=== PATIENT | female | born 1990 | race Caucasian/White ===

== ENCOUNTER 2022-06-29 05:56 | Inpatient (IN) ==
[2022-06-29] MEDS ORDERED: PENICILLIN G POTASSIUM 6 MU in DEXTROSE 5% 250 ML IV STA (06:37)
[2022-06-29] MEDS ORDERED: OXYTOCIN 30 UNITS/500 ML BAG IV PRN ×3 (06:37→18:17)
[2022-06-29] MEDS: LACTATED RINGER'S 1,000 ML IV PRN ×3 (06:50→13:43)
[2022-06-29 07:23] LABS: Hematocrit (blood only) 36.3 % (34.1-44.9); Hemoglobin 11.8 g/dl (12.0-16.0); Mean Corpuscular Hemoglobin 28.8 pg (25.0-34.0); Mean Corpuscular Hgb Conc 32.5 g/dL (32.0-36.0); Mean Corpuscular Volume 88.5 fL (80.0-100.0); Mean Platelet Volume 8.9 fL (9.4-12.3); Platelet Count 388 K/uL (130-400); RDW Coefficient of Variation 14.9 % (11.5-14.5); RDW Standard Deviation 48.8 fL (36.4-46.3); White Blood Count 12.31 K/ul (4.8-10.8)
[2022-06-29] MEDS ORDERED: ePHEDrine sulfate 50 MG/ML AMP ONE (07:31)
[2022-06-29] MEDS ORDERED: fentaNYL citrate 100 MCG/2 ML VIAL ONE ×2 (07:32→13:04)
[2022-06-29] MEDS ORDERED: LIDOCAINE 2%/EPINEPHRINE 1:200,000 20 ML SDV ONE ×2 (07:32→13:04)
[2022-06-29] MEDS ORDERED: SODIUM CHLORIDE 0.9% INJ 10 ML VIAL ONE (07:32)
[2022-06-29] MEDS ORDERED: BUPIVACAINE 0.25% 30 ML VIAL ONE ×2 (07:32→13:04)
[2022-06-29] MEDS ORDERED: fentaNYL 2MCG/ML ROPIVACAINE 1.25MG/ML 100 ML BAG EPI ONE (07:33)
--- NOTE | 2022-06-29 08:13 | History & Physical Report ---
Date of Service June 29, 2022 Assessment & Plan (1) Active labor at term: Plan: 31-year-old at 40 weeks and 1 day gestation presenting to labor and delivery in active labor, GBS positive, SROM here, Vital signs stable afebrile, heart rate reassuring, Penicillin is being given, Continue to monitor closely, Anticipate . (2) GBS (group B Streptococcus carrier), +RV culture, currently : Admission and Anticipated Discharge Date Admission Date: June 29, 2022 History of Present Illness Chief Complaint: Contractions Primary Care Provider: Ana Rosa Mckeon DO Patient is a 31-year-old at 40 weeks and 1 day gestation who woke up a.m. this morning with contractions, they got more regular and painful after 5 AM. She is admitted for labor. She bloody show this morning when she woke up normal bleeding. She had no l eakage until 7:58 am here when she had a gush and it was clear. has been uncomplicated except GBS positive and obesity complicating . She denies medical problems. Allergies Allergy/AdvReac Type Severity Reaction Status Date / Time bee venom Allergy extreme Uncoded 01/24/21 11:54 swelling/shortness of breath Home Medications Medication Instructions Recorded Confirmed Type sertraline 100 mg tablet 25 mg PO 1XD 06/16/22 06/16/22 History Patient History Medical History PCOS (polycystic ovarian syndrome) Pneumonia due to 2019 novel coronavirus Surgical History Hx of abdominal surgery Social History Smoking Status: Never smoker Hx Alcohol Use: No Hx Substance Use: No Preferred Language: Barbadian Communication Ability: Effective Animal Health Technician Required: No Beliefs That Will Affect Care: None marital status: Current Living Situation: Spouse Other Information That Helps Us Care for You: No Feels Safe at Home: Yes Safety Concerns: Feels Safe At This Time Assistive Devices: None [employer]PER[employer]OR History No history of STDs, no history of herpes chlamydia gonorrhea Review of Systems as per Subjective / HPI Physical Exam Constitutional: well developed, well nourished, + acute distress (with Contractions) and + obese Genitourinary: OB Exam Abdomen: + vertex Manual OB Exam: + cervical dilation 4 cm, + cervical effacement 80% and + station -2 OB Exam Monitor Tracing: + external uterine monitor used and + category I Results & Data ([facility]) Vital Signs (Past 12 Hours) Vital Signs Temp Pulse Resp BP 06/29/22 06:14 37.0 C 18 06/29/22 06:47 20 06/29/22 06:47 36.8 C 20 06/29/22 06:47 93 H 06/29/22 06:47 123/47 L 06/29/22 06:15 96 H 06/29/22 06:15 147/74 H 06/29/22 06:13 96 H 06/29/22 06:13 167/90 H 06/29/22 06:08 99 H 179/100 H Laboratory Results Lab Results 06/29/22 Range/Units 06:54 WBC 12.31 H (4.8-10.8) K/ul RBC 4.10 (3.93-5.22) M/uL Hgb 11.8 L (12.0-16.0) g/dl Hct 36.3 (34.1-44.9) % MCV 88.5 (80.0-100.0) fL MCH 28.8 (25.0-34.0) pg MCHC 32.5 (32.0-36.0) g/dL RDW Std Deviation 48.8 H (36.4-46.3) fL RDW Coeff of Ember 14.9 H (11.5-14.5) % Plt Count 388 (130-400) K/uL MPV 8.9 L (9.4-12.3) fL
[2022-06-29] MEDS ORDERED: NALOXONE HCL 0.4 MG/1 ML VIAL/CARP IV PRN (08:31)
[2022-06-29] MEDS ORDERED: NALOXONE HCL 1 MG in SODIUM CHLORIDE 0.9% 1000ML 1,000 ML IV PRN (08:31)
[2022-06-29] MEDS ORDERED: NALBUPHINE HCL INJ 10 MG/ML AMP IV PRN (08:31)
[2022-06-29] MEDS ORDERED: ONDANSETRON INJ 2 MG/ML 2 ML VIAL IV PRN (08:31)
[2022-06-29] MEDS ORDERED: diphenhydrAMINE 50 MG/ML VIAL IV PRN (08:31)
[2022-06-29] MEDS ORDERED: ePHEDrine sulfate 50 MG/ML AMP IV PRN (08:31)
[2022-06-29] MEDS ORDERED: fentaNYL 2MCG/ML ROPIVACAINE 1.25MG/ML 100 ML BAG EPI PRN (08:31)
--- NOTE | 2022-06-29 08:31 | Anesthesiology Consultation ---
Date of Service June 29, 2022 Assessment & Plan ASA ASA2 Proposed Anesthesia Anesthesia Type: Labor Epidural Risk / Benefits Reviewed With: PT / POA / Parent / Guardian, Accepts Plan and Informed Consent Obtained History Height/Weight Height: 5 ft 9 in Weight: 131.542 kg Allergies Allergy/AdvReac Type Severity Reaction Status Date / Time bee venom Allergy extreme Uncoded 01/24/21 11:54 swelling/shortness of breath Medications Home Medications Medication Instructions Recorded Confirmed Last Taken sertraline 100 mg tablet 25 mg PO 1XD 06/16/22 06/16/22 1 Day Ago ~06/15/22 Active Medications Generic Name Dose Route Start Last Admin Trade Name Freq PRN Reason Stop Dose Admin Lactated Ringer's 1,000 mls @ 125 mls/hr 06/29/22 06:37 06/29/22 08:51 Lr IV 07/01/22 06:36 125 mls/hr .Q8H PRN Infusion L&D Protocol Protocol Past Medical History Medical History PCOS (polycystic ovarian syndrome) Pneumonia due to 2019 novel coronavirus Exercise / Class Metabolic Activity II 4-5 Yardwork/Stairs/Walk up hill Past Surgical History Surgical History Hx of abdominal surgery Past Anesthesia History No Hx of Anesthesia Complications and No Family Hx of Anesthesia Complications History of PONV No Hx of PONV and No Hx of Motion Sickness Social History Smoking Status: Never smoker Hx Alcohol Use: No Hx Substance Use: No Review of Systems denies fever/cough/ colds/ chest pain/ SOB/ DEANNE denies DEANNE Physical Exam Vital Signs Last Vital Signs Temp 36.8 C 06/29/22 08:58 Pulse 82 06/29/22 08:59 Resp 20 06/29/22 08:48 BP 160/77 H 06/29/22 08:59 Pulse Ox 96 06/29/22 08:55 ENMT Mouth: no TMJ abnormality and no dentition abnormality Thyromental Distance: > or= 3.5 Finger Breadths Mallampati Class: II Neck neck extension not limited Respiratory normal respiratory effort; no respiratory distress Auscultation: lungs clear to auscultation bilaterally Cardiovascular Rate/Rhythm: regular rate and regular rhythm Neurologic moves all extremities Psychiatric Orientation: alert and oriented x 3 Testing Laboratory Results 06/29/22 06:54
[2022-06-29 10:30] LABS: BUN Creatinine Ratio 17.6 (10-20); Calcium 8.8 mg/dl (8.5-10.1); Creatinine Clr Calc Pharmacy 176.3 ml/min; Est GFR (Non-African American) 117.4 ml/min; Potassium 3.7 mmol/L (3.5-5.1)
[2022-06-29] MEDS: PENICILLIN G POTASSIUM 3 MU in DEXTROSE 5% 100 ML IV PRN ×2 (10:58→15:03)
[2022-06-29 11:09] LABS: Albumin Globulin Ratio 1.3 (0.9-2); Albumin Level 3.4 gm/dl (3.4-5.0); Bilirubin,Total 0.3 mg/dl (0.2-1.0); Globulin 2.7 gm/dl (2.5-4.0); Total Protein 6.1 gm/dl (6.0-8.3)
[2022-06-29] MEDS ORDERED: Nursing to Pharmacy Communication SCH (12:15)
--- NOTE | 2022-06-29 13:57 | Obstetrical Progress Note ---
Date of Service June 29, 2022 Assessment & Plan Admission and Anticipated Discharge Date Admission Date: June 29, 2022 Subjective Patient is comfortable, received epidural for pain VE: 6-7 CM/ 90%/ 0, station, coned head FHR categ I Ctxs q 2-4 min Received 2nd dose of PCN and Oxytocin was started Labs normal BP's normalized adter epidural. Continue to monitor closely. Vital Signs Last BP: 137/63 Vital Signs Temp Pulse Resp BP Pulse Ox 06/29/22 06:14 37.0 C 18 06/29/22 13:53 91 H 06/29/22 13:53 145/69 H 06/29/22 13:51 89 06/29/22 13:51 137/63 06/29/22 13:50 99 06/29/22 13:50 87 06/29/22 13:47 86 06/29/22 13:47 148/71 H 06/29/22 13:45 98 06/29/22 13:45 90 06/29/22 13:45 142/73 H 06/29/22 13:43 83 06/29/22 13:43 142/70 H 06/29/22 13:41 90 06/29/22 13:41 141/68 H 06/29/22 13:40 96 06/29/22 13:40 81 06/29/22 13:39 76 06/29/22 13:39 135/65 06/29/22 13:37 84 06/29/22 13:37 129/62 06/29/22 13:35 96 06/29/22 13:35 79 06/29/22 13:35 130/60 06/29/22 13:33 75 06/29/22 13:33 128/61 06/29/22 13:31 80 06/29/22 13:31 125/57 L 06/29/22 13:30 20 06/29/22 13:30 20 06/29/22 13:30 96 06/29/22 13:30 82 06/29/22 13:29 87 06/29/22 13:29 133/63 06/29/22 13:27 86 06/29/22 13:27 137/65 06/29/22 13:25 97 06/29/22 13:25 85 06/29/22 13:23 20 06/29/22 13:23 20 07/31/22 13:25 81 06/29/22 13:25 135/60 06/29/22 13:23 82 06/29/22 13:23 135/67 06/29/22 13:21 78 06/29/22 13:21 136/68 06/29/22 13:20 97 06/29/22 13:20 79 06/29/22 13:20 78 06/29/22 13:20 123/78 06/29/22 13:15 96 06/29/22 13:15 68 06/29/22 13:15 116/59 L 06/29/22 13:10 95 06/29/22 13:10 87 06/29/22 13:00 18 06/29/22 13:00 36.7 C 18 06/29/22 13:05 98 06/29/22 13:05 101 H 06/29/22 13:00 97 06/29/22 13:00 101 H 06/29/22 12:55 98 06/29/22 12:55 94 H 06/29/22 12:51 83 06/29/22 12:51 132/63 06/29/22 12:50 97 06/29/22 12:50 90 06/29/22 12:45 96 06/29/22 12:45 81 06/29/22 12:40 98 06/29/22 12:40 85 06/29/22 12:36 82 06/29/22 12:36 131/57 L 06/29/22 12:35 97 06/29/22 12:35 86 06/29/22 12:30 20 06/29/22 12:30 20 06/29/22 12:30 96 06/29/22 12:30 96 H 06/29/22 12:25 97 06/29/22 12:25 89 06/29/22 12:20 97 06/29/22 12:20 83 06/29/22 12:21 82 06/29/22 12:21 138/64 06/29/22 12:15 97 06/29/22 12:15 89 06/29/22 12:10 97 06/29/22 12:10 86 06/29/22 12:00 20 06/29/22 12:00 20 06/29/22 12:07 86 06/29/22 12:07 129/82 06/29/22 12:05 97 06/29/22 12:05 89 06/29/22 12:00 97 06/29/22 12:00 88 06/29/22 11:55 96 06/29/22 11:55 86 06/29/22 11:52 81 06/29/22 11:52 136/76 06/29/22 11:50 96 06/29/22 11:50 86 06/29/22 11:50 94 06/29/22 11:50 83 06/29/22 11:30 20 06/29/22 11:30 20 06/29/22 11:45 96 06/29/22 11:45 81 06/29/22 11:43 94 H 06/29/22 11:43 146/75 H 06/29/22 11:42 100 H 06/29/22 11:42 176/91 H 06/29/22 11:40 95 06/29/22 11:40 86 06/29/22 11:36 78 06/29/22 11:36 156/77 H 06/29/22 11:35 96 06/29/22 11:35 81 06/29/22 11:30 96 06/29/22 11:30 90 06/29/22 11:25 95 06/29/22 11:25 89 06/29/22 11:22 80 06/29/22 11:22 140/74 06/29/22 11:20 96 06/29/22 11:20 81 06/29/22 11:15 96 06/29/22 11:15 90 06/29/22 11:10 96 06/29/22 11:10 89 06/29/22 11:05 97 06/29/22 11:05 87 06/29/22 11:06 85 06/29/22 11:06 163/81 H 06/29/22 11:00 97 06/29/22 11:00 100 H 06/29/22 11:00 20 06/29/22 11:00 36.8 C 20 06/29/22 10:55 98 06/29/22 10:55 101 H 06/29/22 10:51 85 06/29/22 10:51 171/87 H 06/29/22 10:50 98 06/29/22 10:50 92 H 06/29/22 10:45 97 06/29/22 10:45 84 06/29/22 10:40 94 06/29/22 10:40 82 06/29/22 10:38 94 06/29/22 10:38 76 06/29/22 10:30 20 06/29/22 10:30 20 06/29/22 10:35 96 06/29/22 10:35 81 06/29/22 10:35 157/79 H 06/29/22 10:32 94 06/29/22 10:32 80 06/29/22 10:30 95 06/29/22 10:30 92 H 06/29/22 10:26 94 06/29/22 10:26 76 06/29/22 10:25 94 06/29/22 10:25 76 06/29/22 10:21 94 06/29/22 10:21 83 06/29/22 10:21 144/73 H 06/29/22 10:20 95 06/29/22 10:20 77 06/29/22 10:15 94 06/29/22 10:15 75 06/29/22 10:10 94 06/29/22 10:10 77 06/29/22 10:05 95 06/29/22 10:06 94 06/29/22 10:05 77 06/29/22 10:06 76 06/29/22 10:06 138/73 06/29/22 10:00 20 06/29/22 10:00 20 06/29/22 10:00 94 06/29/22 10:00 72 06/29/22 09:59 94 06/29/22 09:59 73 06/29/22 09:55 97 06/29/22 09:55 89 06/29/22 09:53 94 06/29/22 09:53 73 06/29/22 09:52 77 06/29/22 09:52 157/91 H 06/29/22 09:50 95 06/29/22 09:50 77 06/29/22 09:48 94 06/29/22 09:48 76 06/29/22 09:30 20 06/29/22 09:30 20 06/29/22 09:45 97 06/29/22 09:45 84 06/29/22 09:43 94 07/31/22 09:43 74 06/29/22 09:40 94 06/29/22 09:40 77 06/29/22 09:38 94 06/29/22 09:38 75 06/29/22 09:37 71 06/29/22 09:37 160/80 H 06/29/22 09:35 96 06/29/22 09:35 75 06/29/22 09:30 96 06/29/22 09:30 77 06/29/22 09:25 98 06/29/22 09:25 84 06/29/22 09:20 98 06/29/22 09:20 88 06/29/22 09:20 155/86 H 06/29/22 09:15 97 06/29/22 09:15 80 06/29/22 09:15 161/88 H 06/29/22 09:11 80 06/29/22 09:11 163/90 H 06/29/22 09:10 98 06/29/22 09:10 83 06/29/22 09:05 97 06/29/22 09:05 93 H 06/29/22 09:05 82 06/29/22 09:05 160/85 H 06/29/22 09:03 18 06/29/22 09:03 18 06/29/22 09:03 82 06/29/22 09:03 157/81 H 06/29/22 09:00 98 06/29/22 09:00 87 06/29/22 09:01 85 06/29/22 09:01 164/85 H 06/29/22 08:59 82 06/29/22 08:59 160/77 H 06/29/22 08:58 36.8 C 06/29/22 08:57 88 06/29/22 08:57 166/88 H 06/29/22 08:48 20 06/29/22 08:48 20 06/29/22 08:55 96 06/29/22 08:55 86 06/29/22 08:55 81 06/29/22 08:55 178/88 H 06/29/22 08:53 96 H 06/29/22 08:53 173/102 H 06/29/22 08:50 96 06/29/22 08:50 85 06/29/22 08:51 88 06/29/22 08:51 166/92 H 06/29/22 08:50 88 06/29/22 08:50 200/104 H 06/29/22 08:45 98 06/29/22 08:45 108 H 06/29/22 08:40 97 06/29/22 08:40 120 H 06/29/22 08:35 98 06/29/22 08:35 111 H 06/29/22 08:30 95 06/29/22 08:30 97 H 06/29/22 08:25 99 06/29/22 08:25 109 H 06/29/22 08:20 99 06/29/22 08:20 126 H 06/29/22 08:20 91 H 06/29/22 08:20 162/88 H 06/29/22 06:47 20 06/29/22 06:47 36.8 C 20 06/29/22 06:47 93 H 06/29/22 06:47 123/47 L 06/29/22 06:15 96 H 06/29/22 06:15 147/74 H 06/29/22 06:13 96 H 06/29/22 06:13 167/90 H 06/29/22 06:08 99 H 179/100 H Results & Data ([facility]) Vital Signs (Past 12 Hours) Vital Signs Temp Pulse Resp BP Pulse Ox 06/29/22 06:14 37.0 C 18 06/29/22 13:51 89 06/29/22 13:51 137/63 06/29/22 13:50 99 06/29/22 13:50 87 06/29/22 13:47 86 06/29/22 13:47 148/71 H 06/29/22 13:45 98 06/29/22 13:45 90 06/29/22 13:45 142/73 H 06/29/22 13:43 83 06/29/22 13:43 142/70 H 06/29/22 13:41 90 06/29/22 13:41 141/68 H 06/29/22 13:40 96 06/29/22 13:40 81 06/29/22 13:39 76 06/29/22 13:39 135/65 06/29/22 13:37 84 06/29/22 13:37 129/62 06/29/22 13:35 96 06/29/22 13:35 79 06/29/22 13:35 130/60 06/29/22 13:33 75 06/29/22 13:33 128/61 06/29/22 13:31 80 06/29/22 13:31 125/57 L 06/29/22 13:30 20 06/29/22 13:30 20 06/29/22 13:30 96 06/29/22 13:30 82 06/29/22 13:29 87 06/29/22 13:29 133/63 06/29/22 13:27 86 06/29/22 13:27 137/65 06/29/22 13:25 97 06/29/22 13:25 85 06/29/22 13:23 20 06/29/22 13:23 20 06/29/22 13:25 81 06/29/22 13:25 135/60 06/29/22 13:23 82 06/29/22 13:23 135/67 06/29/22 13:21 78 06/29/22 13:21 136/68 06/29/22 13:20 97 06/29/22 13:20 79 06/29/22 13:20 78 06/29/22 13:20 123/78 06/29/22 13:15 96 06/29/22 13:15 68 06/29/22 13:15 116/59 L 06/29/22 13:10 95 06/29/22 13:10 87 06/29/22 13:00 18 06/29/22 13:00 36.7 C 18 06/29/22 13:05 98 06/29/22 13:05 101 H 06/29/22 13:00 97 06/29/22 13:00 101 H 06/29/22 12:55 98 06/29/22 12:55 94 H 06/29/22 12:51 83 06/29/22 12:51 132/63 06/29/22 12:50 97 06/29/22 12:50 90 06/29/22 12:45 96 06/29/22 12:45 81 06/29/22 12:40 98 06/29/22 12:40 85 06/29/22 12:36 82 06/29/22 12:36 131/57 L 06/29/22 12:35 97 06/29/22 12:35 86 06/29/22 12:30 20 06/29/22 12:30 20 06/29/22 12:30 96 06/29/22 12:30 96 H 06/29/22 12:25 97 06/29/22 12:25 89 06/29/22 12:20 97 06/29/22 12:20 83 06/29/22 12:21 82 06/29/22 12:21 138/64 06/29/22 12:15 97 06/29/22 12:15 89 06/29/22 12:10 97 06/29/22 12:10 86 06/29/22 12:00 20 06/29/22 12:00 20 06/29/22 12:07 86 06/29/22 12:07 129/82 06/29/22 12:05 97 06/29/22 12:05 89 06/29/22 12:00 97 06/29/22 12:00 88 06/29/22 11:55 96 06/29/22 11:55 86 06/29/22 11:52 81 06/29/22 11:52 136/76 06/29/22 11:50 96 06/29/22 11:50 86 06/29/22 11:50 94 06/29/22 11:50 83 06/29/22 11:30 20 06/29/22 11:30 20 06/29/22 11:45 96 06/29/22 11:45 81 06/29/22 11:43 94 H 06/29/22 11:43 146/75 H 06/29/22 11:42 100 H 06/29/22 11:42 176/91 H 06/29/22 11:40 95 06/29/22 11:40 86 06/29/22 11:36 78 06/29/22 11:36 156/77 H 06/29/22 11:35 96 06/29/22 11:35 81 06/29/22 11:30 96 06/29/22 11:30 90 06/29/22 11:25 95 06/29/22 11:25 89 06/29/22 11:22 80 06/29/22 11:22 140/74 06/29/22 11:20 96 06/29/22 11:20 81 07/31/22 11:15 96 06/29/22 11:15 90 06/29/22 11:10 96 06/29/22 11:10 89 06/29/22 11:05 97 06/29/22 11:05 87 06/29/22 11:06 85 06/29/22 11:06 163/81 H 06/29/22 11:00 97 06/29/22 11:00 100 H 06/29/22 11:00 20 06/29/22 11:00 36.8 C 20 06/29/22 10:55 98 06/29/22 10:55 101 H 06/29/22 10:51 85 06/29/22 10:51 171/87 H 06/29/22 10:50 98 06/29/22 10:50 92 H 06/29/22 10:45 97 06/29/22 10:45 84 06/29/22 10:40 94 06/29/22 10:40 82 06/29/22 10:38 94 06/29/22 10:38 76 06/29/22 10:30 20 06/29/22 10:30 20 06/29/22 10:35 96 06/29/22 10:35 81 06/29/22 10:35 157/79 H 06/29/22 10:32 94 06/29/22 10:32 80 06/29/22 10:30 95 06/29/22 10:30 92 H 06/29/22 10:26 94 06/29/22 10:26 76 06/29/22 10:25 94 06/29/22 10:25 76 06/29/22 10:21 94 06/29/22 10:21 83 06/29/22 10:21 144/73 H 06/29/22 10:20 95 06/29/22 10:20 77 06/29/22 10:15 94 06/29/22 10:15 75 06/29/22 10:10 94 06/29/22 10:10 77 06/29/22 10:05 95 06/29/22 10:06 94 06/29/22 10:05 77 06/29/22 10:06 76 06/29/22 10:06 138/73 06/29/22 10:00 20 06/29/22 10:00 20 06/29/22 10:00 94 06/29/22 10:00 72 06/29/22 09:59 94 06/29/22 09:59 73 06/29/22 09:55 97 06/29/22 09:55 89 06/29/22 09:53 94 06/29/22 09:53 73 06/29/22 09:52 77 06/29/22 09:52 157/91 H 06/29/22 09:50 95 06/29/22 09:50 77 06/29/22 09:48 94 06/29/22 09:48 76 06/29/22 09:30 20 06/29/22 09:30 20 06/29/22 09:45 97 06/29/22 09:45 84 06/29/22 09:43 94 06/29/22 09:43 74 06/29/22 09:40 94 06/29/22 09:40 77 06/29/22 09:38 94 06/29/22 09:38 75 06/29/22 09:37 71 06/29/22 09:37 160/80 H 06/29/22 09:35 96 06/29/22 09:35 75 06/29/22 09:30 96 06/29/22 09:30 77 06/29/22 09:25 98 06/29/22 09:25 84 06/29/22 09:20 98 06/29/22 09:20 88 06/29/22 09:20 155/86 H 06/29/22 09:15 97 06/29/22 09:15 80 06/29/22 09:15 161/88 H 06/29/22 09:11 80 06/29/22 09:11 163/90 H 06/29/22 09:10 98 06/29/22 09:10 83 06/29/22 09:05 97 06/29/22 09:05 93 H 06/29/22 09:05 82 06/29/22 09:05 160/85 H 06/29/22 09:03 18 06/29/22 09:03 18 06/29/22 09:03 82 06/29/22 09:03 157/81 H 06/29/22 09:00 98 06/29/22 09:00 87 06/29/22 09:01 85 06/29/22 09:01 164/85 H 06/29/22 08:59 82 06/29/22 08:59 160/77 H 06/29/22 08:58 36.8 C 06/29/22 08:57 88 06/29/22 08:57 166/88 H 06/29/22 08:48 20 06/29/22 08:48 20 06/29/22 08:55 96 06/29/22 08:55 86 06/29/22 08:55 81 06/29/22 08:55 178/88 H 06/29/22 08:53 96 H 06/29/22 08:53 173/102 H 06/29/22 08:50 96 06/29/22 08:50 85 06/29/22 08:51 88 06/29/22 08:51 166/92 H 06/29/22 08:50 88 06/29/22 08:50 200/104 H 06/29/22 08:45 98 06/29/22 08:45 108 H 06/29/22 08:40 97 06/29/22 08:40 120 H 06/29/22 08:35 98 06/29/22 08:35 111 H 06/29/22 08:30 95 06/29/22 08:30 97 H 06/29/22 08:25 99 06/29/22 08:25 109 H 06/29/22 08:20 99 06/29/22 08:20 126 H 06/29/22 08:20 91 H 06/29/22 08:20 162/88 H 06/29/22 06:47 20 06/29/22 06:47 36.8 C 20 06/29/22 06:47 93 H 06/29/22 06:47 123/47 L 06/29/22 06:15 96 H 06/29/22 06:15 147/74 H 06/29/22 06:13 96 H 06/29/22 06:13 167/90 H 06/29/22 06:08 99 H 179/100 H
--- NOTE | 2022-06-29 16:41 | Communication Note ---
Date of Service: June 29, 2022 asked to reevaluate pt c/o 6/10 pain i decided to replace the epidural at L2- L3. sterle prep/drape. benjamni advanced to josué to air at 6cm easy catheter thread to 12 cm. neg iv/it with 5cc lido w/ epi. catheter secured. bolus 4 cc .25% bupivicaine and 100mcg fentanyl
[2022-06-29] MEDS ORDERED: MINERAL OIL 30 ML UDC ONE (17:33)
[2022-06-29] MEDS ORDERED: LIDOCAINE 1% LOCAL 20 ML VIAL ONE (17:50)
[2022-06-29] MEDS ORDERED: CLINDAMYCIN/D5W 900 MG/50 ML BAG IV ONE (18:17)
[2022-06-29] MEDS ORDERED: ACETAMINOPHEN 325 MG TAB PO PRN (18:17)
[2022-06-29] MEDS ORDERED: DIPHTHERIA/TETANUS/PERTUSSIS 0.5 ML SYR/VIAL IM ONE (18:17)
[2022-06-29] MEDS ORDERED: MEASLES, MUMPS & RUBELLA VIRUS VIAL SQ ONE (18:17)
[2022-06-29] MEDS ORDERED: bisacodyL 10 MG SUPP PR PRN (18:17)
[2022-06-29] MEDS ORDERED: BENZOCAINE 20% AER SPR 82.5 GM CAN EXT PRN (18:17)
[2022-06-29] MEDS ORDERED: oxyCODONE/ACETAMINOPHEN 5mg/325mg TAB PO PRN (18:17)
[2022-06-29] MEDS ORDERED: HYDROCORTISONE ACETATE 25 MG SUPP PR PRN (18:17)
--- NOTE | 2022-06-29 18:22 | Delivery Summary ---
Vaginal Delivery Summary Date of Service June 29, 2022 Vaginal Delivery Summary Patient was found to be fully dilated and desire to push she pushed for about 50 minutes and delivered the head without difficulty. The shoulders were delivered with minimal traction and the baby was handed off to the mother that her mouth and nose were suctioned, the cord was clamped times and cut at 1 minute delay. The baby is vigorously moving and crying at that point. The vagina and perineum were checked for lacerations. there was a small second-degree perineal laceration at the posterior fourchette. The exam was done and excellent sphincter tone was noted and it was confirmed to be second-degree. The gloves were changed and this was repaired with 2-0 Vicryl in a running locked fashion and excellent hemostasis achieved. Rest of the vagina and labia were intact. The placenta was found to be in vagina, delivered spontaneously as intact and complete. Uterus was explored and found to be empty, the lower segment was cleared of all clots and debris's, fundus was firm and EBL was 200 mL. No complications happened and I was present during whole procedure. At the end of the procedure sponge, needle and instrument count was correct x2.
[2022-06-29] MEDS ORDERED: LABETALOL HCL 100 MG TAB PO ONE (20:08)
[2022-06-29] MEDS: DOCUSATE SODIUM 100 MG CAP PO SCH (20:14)
[2022-06-29] MEDS: IBUPROFEN 600 MG TAB PO PRN (21:17)
--- NOTE | 2022-06-29 21:24 | Anesthesia Procedure Note ---
Date of Service June 29, 2022 Anesthesia Post Epidural Note Vital Signs Vital Signs: Temp Pulse Resp BP Pulse Ox 36.8 C 121 H 18 149/82 H 97 06/29/22 17:00 06/29/22 21:01 06/29/22 20:02 06/29/22 21:01 06/29/22 17:50 Pain Intensity Bilateral Abdomen: Pain Intensity: 2 Lower Back: Pain Intensity: 2 Notes Mental Status: alert / awake / arousable and participated in evaluation Nausea / Vomiting: adequately controlled Pain: adequately controlled Airway Patency, RR, SpO2: stable & adequate BP & HR: stable & adequate Hydration State: stable & adequate Neuraxial Anesthesia: was administered and sensory block resolved Anesthetic Complications: no major complications apparent and Pt Satisfied with anesthetic care Epidural: Removed without complications and With tip intact
[2022-06-30 06:02] LABS: Hematocrit (blood only) 32.1 % (34.1-44.9); Hemoglobin 10.7 g/dl (12.0-16.0); Mean Corpuscular Hemoglobin 29.6 pg (25.0-34.0); Mean Corpuscular Hgb Conc 33.3 g/dL (32.0-36.0); Mean Corpuscular Volume 88.9 fL (80.0-100.0); Mean Platelet Volume 8.9 fL (9.4-12.3); Platelet Count 337 K/uL (130-400); RDW Coefficient of Variation 14.9 % (11.5-14.5); RDW Standard Deviation 48.5 fL (36.4-46.3); Red Blood Count 3.61 M/uL (3.93-5.22); White Blood Count 14.96 K/ul (4.8-10.8)
[2022-06-30] MEDS: IBUPROFEN 600 MG TAB PO PRN ×3 (06:10→21:30)
[2022-06-30] MEDS: FERROUS SULFATE 325 MG TAB PO SCH (08:42)
[2022-06-30] MEDS: DOCUSATE SODIUM 100 MG CAP PO SCH ×2 (08:42→21:31)
[2022-06-30] MEDS: PRENATAL VITAMIN 1 TAB PO SCH (08:42)
--- NOTE | 2022-06-30 10:11 | Obstetrical Progress Note ---
Date of Service June 30, 2022 Subjective Ambulation: ambulating normally Voiding: no voiding problems Passing Gas:: Yes Diet Tolerance:: regular diet Lochia:: Small Feeding Type:: breast feeding Current Pain Level(1-10): 0 doing well Physical Exam Constitutional WD/WN, vitals as above Musculoskeletal Extremities: extremities normal to inspection no edema. neg Sepideh's Skin no rashes, warm and dry Neurologic patellar DTR's 2+ bilat, sensation intact Psychiatric A+Ox3, euthymic affect Results & Data ([facility]) Vital Signs (Past 12 Hours) Vital Signs Temp Pulse Resp BP BP O2 Del Method 06/30/22 08:35 36.6 C 89 21 133/82 Room Air 06/30/22 08:35 Room Air 06/30/22 04:00 36.6 C 90 18 143/80 H Room Air 06/29/22 23:30 37.0 C 89 18 145/83 H Room Air Laboratory Results 06/29/22 06/29/22 06/29/22 06:54 06:54 08:55 WBC 12.31 H RBC 4.10 Hgb 11.8 L Hct 36.3 MCV 88.5 MCH 28.8 MCHC 32.5 RDW Std Deviation 48.8 H RDW Coeff of Ember 14.9 H Plt Count 388 MPV 8.9 L Sodium 135 L Potassium 3.7 Chloride 106 Carbon Dioxide 19 L Anion Gap 10 BUN 12 Creatinine 0.68 Est Cr Clr Drug Dosing 176.3 Est GFR ( Amer) 136.0 Est GFR (Non-Af Amer) 117.4 BUN/Creatinine Ratio 17.6 Glucose 88 Calcium 8.8 Total Bilirubin 0.3 AST 7 L ALT 6 L Alkaline Phosphatase 73 Lactate Dehydrogenase Total Protein 6.1 Albumin 3.4 Globulin 2.7 Albumin/Globulin Ratio 1.3 SARS-CoV-2, RNA, NAAT Blood Type A Positive Antibody Screen NEGATIVE 06/29/22 06/29/22 06/30/22 08:55 Unknown 05:31 WBC 14.96 H RBC 3.61 L Hgb 10.7 L Hct 32.1 L MCV 88.9 MCH 29.6 MCHC 33.3 RDW Std Deviation 48.5 H RDW Coeff of Ember 14.9 H Plt Count 337 MPV 8.9 L Sodium Potassium Chloride Carbon Dioxide Anion Gap BUN Creatinine Est Cr Clr Drug Dosing Est GFR ( Amer) Est GFR (Non-Af Amer) BUN/Creatinine Ratio Glucose Calcium Total Bilirubin AST ALT Alkaline Phosphatase Lactate Dehydrogenase 134 Total Protein Albumin Globulin Albumin/Globulin Ratio SARS-CoV-2, RNA, NAAT NEGATIVE Blood Type Antibody Screen
[2022-06-30] MEDS: LABETALOL HCL 100 MG TAB PO SCH ×2 (10:13→21:31)
[2022-06-30] MEDS ORDERED: bisacodyL 5 MG TABEC PO SCH (20:00)
[2022-07-01 06:19] LABS: Basophils # (auto) 0.06 K/uL (0-0.2); Basophils % (auto) 0.5 %; Eosinophils % (auto) 1.7 %; Hematocrit (blood only) 31.6 % (34.1-44.9); Immature Granulocytes # (auto) 0.06 K/uL (0.00-0.02); Immature Granulocytes % (auto) 0.5 %; Lymphocytes # (auto) 3.08 K/uL (1.2-3.4); Lymphocytes % (auto) 26.6 %; Mean Corpuscular Hemoglobin 28.5 pg (25.0-34.0); Mean Corpuscular Hgb Conc 31.6 g/dL (32.0-36.0); Mean Platelet Volume 8.8 fL (9.4-12.3); Monocytes # (auto) 0.91 K/uL (0.24-0.82); Monocytes % (auto) 7.9 %; Neutrophils # (auto) 7.26 K/uL (1.4-6.5); Neutrophils % (auto) 62.8 %; Platelet Count 315 K/uL (130-400); RDW Coefficient of Variation 15.4 % (11.5-14.5); RDW Standard Deviation 50.5 fL (36.4-46.3); Red Blood Count 3.51 M/uL (3.93-5.22); White Blood Count 11.57 K/ul (4.8-10.8)
[2022-07-01] MEDS: LABETALOL HCL 100 MG TAB PO SCH (08:13)
[2022-07-01] MEDS: DOCUSATE SODIUM 100 MG CAP PO SCH (08:13)
[2022-07-01] MEDS: FERROUS SULFATE 325 MG TAB PO SCH (08:13)
[2022-07-01] MEDS: PRENATAL VITAMIN 1 TAB PO SCH (08:14)
[2022-07-01] MEDS: IBUPROFEN 600 MG TAB PO PRN (08:14)
--- NOTE | 2022-07-01 10:33 | Obstetrical Progress Note ---
Date of Service July 01, 2022 Assessment & Plan Admission and Anticipated Discharge Date Admission Date: June 29, 2022 Subjective Patient is seen and examined. She feels well, no complaints. Desires d/c today. Pain is under control with oral meds. Ambulating without dizziness Voiding without difficulty Tolerating regular diet with out N&V Flatus + Bleeding is minimal No fever/ chills/ CP/ SOB/ N&V/ Leg pain Breast feeding without problems Vital Signs Temp Pulse Resp BP Pulse Ox O2 Del Method 07/01/22 07:55 37.0 C 81 18 141/84 H 98 Room Air 07/01/22 04:25 144/83 H 06/30/22 23:45 36.6 C 84 18 125/84 97 Room Air Vital Signs Temp Pulse Resp BP Pulse Ox O2 Del Method 07/01/22 07:55 37.0 C 81 18 141/84 H 98 Room Air 07/01/22 04:25 144/83 H 06/30/22 23:45 36.6 C 84 18 125/84 97 Room Air 06/30/22 21:28 85 136/83 06/30/22 16:00 37.0 C 87 16 106/71 97 Room Air 06/30/22 16:00 Room Air 06/30/22 11:52 37.0 C 92 H 20 118/76 Room Air Lab Results 06/29/22 06/29/22 06/29/22 Range/Units 06:54 06:54 08:55 WBC 12.31 H (4.8-10.8) K/ul RBC 4.10 (3.93-5.22) M/uL Hgb 11.8 L (12.0-16.0) g/dl Hct 36.3 (34.1-44.9) % MCV 88.5 (80.0-100.0) fL MCH 28.8 (25.0-34.0) pg MCHC 32.5 (32.0-36.0) g/dL RDW Std Deviation 48.8 H (36.4-46.3) fL RDW Coeff of Ember 14.9 H (11.5-14.5) % Plt Count 388 (130-400) K/uL MPV 8.9 L (9.4-12.3) fL Immature Gran % (Auto) % Neut % (Auto) % Lymph % (Auto) % [place] % (Auto) % Eos % (Auto) % Baso % (Auto) % Neut # (Auto) (1.4-6.5) K/uL Lymph # (Auto) (1.2-3.4) K/uL [place] # (Auto) (0.24-0.82) K/uL Eos # (Auto) (0-0.50) K/uL Baso # (Auto) (0-0.2) K/uL Immature Gran # (Auto) (0.00-0.02) K/uL Sodium 135 L (136-145) mmol/L Potassium 3.7 (3.5-5.1) mmol/L Chloride 106 (98-107) mmol/L Carbon Dioxide 19 L (21-32) mmol/L Anion Gap 10 (3-11) BUN 12 (6-23) mg/dl Creatinine 0.68 (0.6-1.2) mg/dl Est Cr Clr Drug Dosing 176.3 ml/min Est GFR ( Amer) 136.0 ml/min Est GFR (Non-Af Amer) 117.4 ml/min BUN/Creatinine Ratio 17.6 (10-20) Glucose 88 (70-99(Fasting)) mg/dl Calcium 8.8 (8.5-10.1) mg/dl Total Bilirubin 0.3 (0.2-1.0) mg/dl AST 7 L (13-39) U/L ALT 6 L (7-52) U/L Alkaline Phosphatase 73 (34-104) U/L Lactate Dehydrogenase (86-244) U/L Total Protein 6.1 (6.0-8.3) gm/dl Albumin 3.4 (3.4-5.0) gm/dl Globulin 2.7 (2.5-4.0) gm/dl Albumin/Globulin Ratio 1.3 (0.9-2) SARS-CoV-2, RNA, NAAT (NEGATIVE) Blood Type A Positive Antibody Screen NEGATIVE 06/29/22 06/29/22 06/30/22 Range/Units 08:55 Unknown 05:31 WBC 14.96 H (4.8-10.8) K/ul RBC 3.61 L (3.93-5.22) M/uL Hgb 10.7 L (12.0-16.0) g/dl Hct 32.1 L (34.1-44.9) % MCV 88.9 (80.0-100.0) fL MCH 29.6 (25.0-34.0) pg MCHC 33.3 (32.0-36.0) g/dL RDW Std Deviation 48.5 H (36.4-46.3) fL RDW Coeff of Ember 14.9 H (11.5-14.5) % Plt Count 337 (130-400) K/uL MPV 8.9 L (9.4-12.3) fL Immature Gran % (Auto) % Neut % (Auto) % Lymph % (Auto) % [place] % (Auto) % Eos % (Auto) % Baso % (Auto) % Neut # (Auto) (1.4-6.5) K/uL Lymph # (Auto) (1.2-3.4) K/uL [place] # (Auto) (0.24-0.82) K/uL Eos # (Auto) (0-0.50) K/uL Baso # (Auto) (0-0.2) K/uL Immature Gran # (Auto) (0.00-0.02) K/uL Sodium (136-145) mmol/L Potassium (3.5-5.1) mmol/L Chloride (98-107) mmol/L Carbon Dioxide (21-32) mmol/L Anion Gap (3-11) BUN (6-23) mg/dl Creatinine (0.6-1.2) mg/dl Est Cr Clr Drug Dosing ml/min Est GFR ( Amer) ml/min Est GFR (Non-Af Amer) ml/min BUN/Creatinine Ratio (10-20) Glucose (70-99(Fasting)) mg/dl Calcium (8.5-10.1) mg/dl Total Bilirubin (0.2-1.0) mg/dl AST (13-39) U/L ALT (7-52) U/L Alkaline Phosphatase (34-104) U/L Lactate Dehydrogenase 134 (86-244) U/L Total Protein (6.0-8.3) gm/dl Albumin (3.4-5.0) gm/dl Globulin (2.5-4.0) gm/dl Albumin/Globulin Ratio (0.9-2) SARS-CoV-2, RNA, NAAT NEGATIVE (NEGATIVE) Blood Type Antibody Screen 07/01/22 Range/Units 05:54 WBC 11.57 H (4.8-10.8) K/ul RBC 3.51 L (3.93-5.22) M/uL Hgb 10.0 L (12.0-16.0) g/dl Hct 31.6 L (34.1-44.9) % MCV 90.0 (80.0-100.0) fL MCH 28.5 (25.0-34.0) pg MCHC 31.6 L (32.0-36.0) g/dL RDW Std Deviation 50.5 H (36.4-46.3) fL RDW Coeff of Ember 15.4 H (11.5-14.5) % Plt Count 315 (130-400) K/uL MPV 8.8 L (9.4-12.3) fL Immature Gran % (Auto) 0.5 % Neut % (Auto) 62.8 % Lymph % (Auto) 26.6 % [place] % (Auto) 7.9 % Eos % (Auto) 1.7 % Baso % (Auto) 0.5 % Neut # (Auto) 7.26 H (1.4-6.5) K/uL Lymph # (Auto) 3.08 (1.2-3.4) K/uL [place] # (Auto) 0.91 H (0.24-0.82) K/uL Eos # (Auto) 0.20 (0-0.50) K/uL Baso # (Auto) 0.06 (0-0.2) K/uL Immature Gran # (Auto) 0.06 H (0.00-0.02) K/uL Sodium (136-145) mmol/L Potassium (3.5-5.1) mmol/L Chloride (98-107) mmol/L Carbon Dioxide (21-32) mmol/L Anion Gap (3-11) BUN (6-23) mg/dl Creatinine (0.6-1.2) mg/dl Est Cr Clr Drug Dosing ml/min Est GFR ( Amer) ml/min Est GFR (Non-Af Amer) ml/min BUN/Creatinine Ratio (10-20) Glucose (70-99(Fasting)) mg/dl Calcium (8.5-10.1) mg/dl Total Bilirubin (0.2-1.0) mg/dl AST (13-39) U/L ALT (7-52) U/L Alkaline Phosphatase (34-104) U/L Lactate Dehydrogenase (86-244) U/L Total Protein (6.0-8.3) gm/dl Albumin (3.4-5.0) gm/dl Globulin (2.5-4.0) gm/dl Albumin/Globulin Ratio (0.9-2) SARS-CoV-2, RNA, NAAT (NEGATIVE) Blood Type Antibody Screen PE: General: Alert, orientedx3, NAD Abd: soft, NT, ND, BS+, fundus firm, below Umbilicus Perineum intact, Lochia rubra minimal Ext; NT, no edema, homans neg/ neg AP: 31 yo s/p , ppd# 2 VSS Afebrile doing well All questions were answered D/C home , f/u in office. Results & Data ([facility]) Vital Signs (Past 12 Hours) Vital Signs Temp Pulse Resp BP Pulse Ox O2 Del Method 07/01/22 07:55 37.0 C 81 18 141/84 H 98 Room Air 07/01/22 04:25 144/83 H 06/30/22 23:45 36.6 C 84 18 125/84 97 Room Air
== END 2022-07-01 13:15 | disposition home or self-care (01) | DRG 807 ==
LOC: OPB 05:56 → 4S1 06:04 → 4E2 21:32